=== PATIENT | male | born 1995 | race Caucasian/White ===

== ENCOUNTER 2020-10-18 09:51 | Emergency (ER) | payer SELFPAY ==
[2020-10-18 10:14] VITALS: BP 126/86; PULSE 83; RESP 17; TEMP 36.6; O2SAT 96; BMI 26.3
--- NOTE | 2020-10-18 10:25 | ED_ITS ---
HPI - Dental/Oral General: Chief complaint: Dental/Oral Stated complaint: TOOTH PAIN/DIZZINESS Time Seen by Provider: 10/18/20 10:04 Source: patient Mode of arrival: ambulatory Limitations: no limitations History of Present Illness: HPI Narrative: 25-year-old male patient comes in today with tooth pain. Patient reports chronic problems with teeth. Patient has multiple tooth decay. Patient reports starting yesterday he had significant pain and discomfort to the left side of his face. Review of Systems General: Reports: 10 or more systems reviewed and unremarkable except in HPI and below ENMT: Reports: dental pain Physical Exam Const: COMMON NORMALS: no acute distress and patient oriented x3 GENERAL APPEARANCE: cooperative HENMT: COMMON NORMALS: normocephalic, TM's normal bilaterally and Normal external nose present HEAD & SCALP: normal to inspection and normocephalic NOSE: Normal external nose present TYMPANIC MEMBRANE: TM's normal bilaterally MOUTH: other (Poor dental repair, multiple cavities and dental decay to generalized teeth) THROAT: posterior oropharynx normal Eye: GENERAL EYE: appearance normal, both eyes and all related structures Neck/C-Spine: COMMON NORMALS: full ROM Lymph: LYMPHATIC: no lymphadenopathy noted Chest: COMMONS NORMALS: normal inspection of the chest Resp: COMMON NORMALS: normal respiratory effort EFFORT & INSPECTION: Yes able to speak in complete sentences Cardio: COMMON NORMALS: regular rate and regular rhythm RATE: regular rate RHYTHM: regular rhythm GI: COMMON NORMALS: non-tender Extremity: COMMON NORMALS: normal to inspection Neuro: COMMON NORMALS: patient oriented x3 and moves all extremities Psych: COMMON NORMALS: mental status grossly normal and cooperative Skin: COMMON NORMALS: no rashes or lesions noted GENERAL SKIN EXAM: no rashes or lesions noted Course Vital Signs: Vital signs: Vital Signs Temperature 97.8 F 10/18/20 10:14 Pulse Rate 83 10/18/20 10:14 Respiratory Rate 17 10/18/20 10:14 Blood Pressure 126/86 10/18/20 10:14 Pulse Oximetry 96 10/18/20 10:14 MDM - Dental/Oral MDM Narrative: Medical decision making narrative: Patient comes in with dental pain. On exam patient has multiple dental decay. Airway is open. No signs of significant swelling or asymmetry to posterior pharynx. Differential diagnosis includes dental decay, odontalgia, dental abscess. No signs of serious injury or illnesses noted. Patient was recommended to be treated with antibiotic medication for pain. Patient needs definitive care with dentist. Patient reported understanding. Case management request was placed to help with patient follow-up with dentist. Discharge Plan Discharge Patient Disposition: Home Clinical Impression: Dental caries, Dental abscess Condition: Stable Prescriptions: New clindamycin HCl 150 mg capsule 450 mg PO BID Qty: 42 RF: 0 Lidocaine Viscous 2 % solution 5 ml mucous membrane Q3H PRN (Reason: pain) Qty: 100 RF: 0 diclofenac potassium 50 mg tablet 50 mg PO Q8H PRN (Reason: pain) Qty: 14 RF: 0 Discharge Orders: Discharge ED (Routine); Ordered 10/18/20 Ordered By: Fredy Black Discharge Diet: Usual diet Discharge Activity: Increase activity as tolerated Patient Instructions: Dental Abscess (ED) Activity Restrictions/Additional Instructions: Good oral care, medications as directed, drink plenty of water with medication, follow-up with dentist for definitive care. Coding Level of Care Code ED Batch Plant Operator for Tonja Fwd Exam Comprehensive
[2020-10-18 11:21] VITALS: BP 150/75; PULSE 75; RESP 16; O2SAT 97
--- NOTE | 2020-10-19 10:36 | DCPLANNER ---
advertising project manager had message to speak with patient about a dental follow up. advertising project manager called [phone], a recording stated that this number is not reachable. Could not speak with or leave a message for this patient.
== END 2020-10-18 11:22 | disposition home or self-care (01) ==
PROVIDERS: Emergency Provider Nurse Practitioner Family
DX: K02.9 Dental caries, unspecified (principal); K04.7 Periapical abscess without sinus
CPT/HCPCS: 12345; 99281; 99282